=== PATIENT | female | born 1990 | race Caucasian/White ===

== ENCOUNTER 2024-08-28 19:13 | Observation (INO) | payer SELFPAY ==
[2024-08-28] VITALS (18 sets, daily range): BP systolic 88–136; BP diastolic 43–117; PULSE 93–121; RESP 15–18; TEMP 36.2–36.7; O2SAT 97–100; BMI 28.6
[2024-08-28 19:41] LABS: Absolute Lymphocyte Count 1.99 X10^3/uL (0.83-4.51); Absolute Neutrophil Count 11.7 X10^3/uL (2.0-7.7); Basophil# 0.02 X10^3/uL; Basophil% 0.1 % (0-1); Eosinophil# 0.08 X10^3/uL; Eosinophils% 0.5 % (0-5); Hematocrit 26.3 % (37-47); Hemoglobin 8.8 g/dL (12.0-15.0); Lymphocyte # 1.99 X10^3/ul (0.83-4.51); Lymphocyte % 13.4 % (19-41); Mean Corp Hgb Conc 33.5 g/dL (32-36); Mean Corpuscular Hgb 27.8 pg (27.0-32.0); Mean Corpuscular Volume 83.2 fL (81-99); Mean Platelet Vol. 10.4 fl (6.2-12.0); Monocyte# 0.93 X10^3/uL; Monocyte% 6.3 % (0-10); NRBC Flagged by Analyzer 0 % (0-5); Neutrophil # 11.72 X10^3/uL (2.7-7.7); Platelet Count 204 K/mm3 (150-450); RBC Distribution Width CV 13.8 % (11.6-14.6); RBC Distribution Width SD 41.9 fl (35.1-43.9); Red Blood Count 3.16 M/mm3 (4.2-5.4); White Blood Count 14.8 K/mm3 (4.4-11.0)
--- NOTE | 2024-08-28 19:44 | EDS_ITS ---
HPI HPI - Female History of Present Illness Chief Complaint: Vag Bld, Preg Informant: patient and spouse/S.O. Pain Onset: Today Context: Gradual Onset Timing: Continuous Quality: Positive for Cramping Current Severity: Mild Maximum Severity: Mild Bleeding Issue: Positive for Vaginal bleeding and Passing clots Maximum Severity: Heavy Associated Symptoms Test: Positive Sexually: Positive for Active Control: No control P: 8 Ab: 0 Narrative Narrative: 34-year-old [facility] female G9, P8 Ab0. 3 months . Has had no care. Believes she had a miscarriage this morning with heavy vaginal bleeding. Was unsure if she saw tissue. She has had heavy bleeding most of the day. She is having some mild pelvic cramping. She believes her blood type is a negative. Currently she does not want RhoGAM. Prior similar symptoms: No Recent Illness/Hospitalization: No PFSH PFSH Medical History no medical history no medical history Home Medications ?Medication ?Instructions ?Recorded ?Last Taken ?Type NK 08/28/24 Unknown History Allergy/AdvReac Type Severity Reaction Status Date / Time No Known Allergies Allergy Verified 08/28/24 19:25 Social History Smoking Status: Never smoker ROS ROS ED ROS Narrative Denies recent illness. Pelvic cramping. Heavy vaginal bleeding with clots. Constitutional Constitutional ED: Denies chills or fever(s) Eyes Eyes: Denies blurry vision ENT ENT ED: Denies ear pain Cardiovascular Cardiovascular: Denies chest pain Respiratory/Chest Respiratory/Chest: Denies cough or dyspnea Gastrointestinal Gastrointestinal: Denies abdominal pain Genitourinary Genitourinary ED: Denies dysuria or hematuria Musculoskeletal Musculoskeletal: Denies arthralgias Integumentary Denies abscess or Abrasions Neurologic Neurologic: Denies headache(s) Psychiatric Psychiatric: Denies anxiety or depression Endocrine Endocrinology: Denies heat intolerance Hematologic/Lymphatic Hematologic/Lymphatic: Denies easy bleeding, easy bruising or lymphadenopathy Allergic/Immunologic Allergic/Immunologic ED: Reports mouth swelling EXAM Physical Exam Narrative Exam Narrative: 34-year-old [facility] female lying in bed. at bedside. Initial vital signs 136/117 repeat 88/65. She is currently receiving IV fluids. H EENT exam pupils round react to light. Mytrex members. Neck nontender. Lungs clear to auscultation bilaterally. Heart regular rhythm rate about 100 no murmur. Chest wall and ribs nontender. Abdomen soft nondistended. Suprapubic tenderness. Boggy enlarged uterus. Pelvic exam done female nurse and present in room. Heavy vaginal bleeding with clots. Every time I start getting out clots and blood there would be additional clots and blood. I do believe I see the placenta coming from the cervix. The cervix is open. No lesions. No discharge. Moving all 4 extremities. Nontender no edema. She is awake and alert. No focal motor deficits. Const Vital Signs: 08/28/24 19:14 08/28/24 19:16 08/28/24 19:39 Temperature 98.0 F Temperature Source Temporal Temporal Pulse Rate 93 100 Respiratory Rate 18 17 Blood Pressure 136/117 H 88/65 L Blood Pressure Mean 123 72 Blood Pressure Source Blood Pressure Position Blood Pressure Location Pulse Ox 99 100 Oxygen Delivery Method Room Air 08/28/24 20:02 08/28/24 20:35 Temperature 98.0 F 98.0 F Temperature Source Temporal Pulse Rate 94 104 H Respiratory Rate 15 17 Blood Pressure 101/62 95/58 L Blood Pressure Mean 75 70 Blood Pressure Source Monitor Blood Pressure Position Supine Blood Pressure Location Right Arm Pulse Ox 100 97 Oxygen Delivery Method Room Air Positive well nourished and well developed; Negative for cachectic, contractures or unkempt General Appearance ED: well developed; Negative for unkempt, cachectic, contractures, NAD or pallor Nutritional Appearance: Negative for cachectic HEENT Reports moist mucous membranes Negative for trauma or tenderness Eyes PERRL and EOMs intact bilaterally Neck no lymphadenopathy, supple and no JVD Chest Wall inspection of chest normal and palpation of chest normal Resp normal respiratory effort Cardio regular rhythm, S1 normal heart sound, no murmurs and no JVD GI normal to inspection, nondistended, normoactive bowel sounds, soft to palpation, non-tender, non-distended and no masses GI Narrative: Suprapubic tenderness. Palpation: tender Back/Spine no CVA tenderness General Back: Negative for CVA tenderness Cervical Spine: Negative for cervical spine tenderness Thoracic Spine / Upper Back: Negative for thoracic spinal tenderness Lumbar Spine / Lower Back: Negative for lumbar spinal tenderness Extremity normal to inspection and full ROM General Extremety ED: Negative for edema or tenderness General Extremity: Negative for edema Neuro oriented x3 and CN's II-XII intact bilaterally Sensorium / Orientation: alert, oriented to person, oriented to place and oriented to time; Negative for confused, lethargic or stuporous Motor Exam: strength 5/5 throughout Psych mental status grossly normal Appearance: Negative for unkempt Attitude: No agitated Speech: No other Mood & Affect: Negative for depressed, anxious or tearful Skin no rashes or lesions noted and no wounds General Skin Exam: Negative for jaundice or pallor Rashes: No rashes noted MDM MDM MDM Narrative Medical decision making narrative: 34-year-old female heavy vaginal bleeding with clots. Currently miscarriage but not completed. Pelvic exam shows significant bleeding with clots. Already spoken to OB should be taken to the OR. We are establishing 2 lines. She is receiving a liter normal saline. She will be typed and crossed for 2 units. Blood count shows acute anemia with a hemoglobin 8.8 but no other labs available for comparison. Patient is aware that she is going to the OR. I discussed with the patient RhoGAM she does not want at this time that will be further discussed between her and the INSULATION CUTTER on-call. History & Record Review Discussion w/independent historian: Patient and Family Additional record(s) reviewed:: No prior records Lab Data Attestation: I reviewed the patient's lab results. Lab results narrative: CBC shows a white count of 14.8. H&H of 8.8 and 26.3. Platelets 204. Additional labs are currently pending. Patient's quant was 29, 114. Fibrinogen was 348. Blood type was O-. Labs: Laboratory Results - last 24 hr 08/28/24 08/28/24 19:25 20:00 WBC 14.8 H RBC 3.16 L Hgb 8.8 L Hct 26.3 L MCV 83.2 MCH 27.8 MCHC 33.5 RDW Std Deviation 41.9 RDW Coeff of Win 13.8 Plt Count 204 MPV 10.4 Immature Gran % (Auto) 0.700 Neut % (Auto) 79.0 H Lymph % (Auto) 13.4 L [place] % (Auto) 6.3 Eos % (Auto) 0.5 Baso % (Auto) 0.1 Absolute Neuts (auto) 11.7 H Absolute Lymphs (auto) 1.99 Nucleated RBC % 0 Fibrinogen 348 HCG, Quant 18665 H Blood Type O NEGATIVE Antibody Screen NEGATIVE Crossmatch See Detail Discharge Plan Dx/Rx/DC Orders Clinical Impression: Incomplete miscarriage, Episode of heavy vaginal bleeding, Acute anemia, Need for rhogam due to Rh negative mother Disposition Disposition: Acute Care Hospital [facility] Discharge Date/Time: 08/28/24 20:41
[2024-08-28] MEDS: 0.9% Normal Saline (1000mL) 1,000 ML 999 ML IV ×2 (19:51→20:30)
--- NOTE | 2024-08-28 20:15 | POC_PTH ---
PATIENT: JH TOMPKINS LOC: MS2 U#:[id number] AGE/SX: 34/F ROOM: [facility] RE08/29/[address]: Dr. Laura Castañeda, MDDOB: 1990 BED: 1 DIS: 08/29/2024 SPEC #: [id number] RECD: 08/29/24 09:10 STATUS: TALISHA MICHELLERosa #: [id number] SARBJIT: 08/28/24 20:[address]: Laura Castañeda DEPT: SURGICAL PATHOLOGY RECD BY: Elana Merrill ENTERED: 08/29/24 11:05 SP TYPE: PROD CONC OTHR DR: Dr. Taz Roberson DO Tissues: Product of conception, NOS Procedures: Surgery Specimen Level IV HEADER OPERATION: Dilation and curettage, suction PRE-OP DIAGNOSIS: Incomplete miscarriage, episode of heavy vaginal bleeding, acute anemia TISSUE SUBMITTED: Products of conception MICROSCOPIC DIAGNOSIS Products of conception, dilation and curettage: Decidua and immature placental tissue (products of conception), clinically incomplete . TERRIE: 08/30/2024 MICROSCOPIC DESCRIPTION Slides are reviewed. GROSS DESCRIPTION Received in fixative is one container labeled with the patient's name and designated Products of conception. The specimen consists of multiple irregular fragments of hemorrhagic soft tissue mixed with blood clot and placental tissue that in aggregate measure 10 x 10 x 3 cm. tissue is not identified. Website Admin tissue is submitted in two cassettes. 08/29/2024 TC:5 CPT:84670
--- NOTE | 2024-08-28 20:35 | HP.PCM.OB_ITS ---
History and Physical Date of Admission: 08/28/24 This is a 9 para 8 female at approximately 12 weeks gestation with an LMP of May 10, 2025 came into the ER complaining of heavy vaginal bleeding since approximately 6 AM today. Patient reports she passed intact fetus at approximately 630 this morning. She states that she has been having heavy bleeding and minor cramping since that time. Patient reports she does feel dizzy on occasion when standing. Patient reports she does feel sweaty at times as well. Patient reports she has had 8 vaginal deliveries without any complication. Patient reports she has had no complications with this up until today. Patient reports she has not had any ultrasounds for this p regnancy. Patient denies any medical history. Patient denies any previous surgeries. PMH: Denies PSX: denies All: NKDA Exam: female appears to be diaphoretic, pale. Alert and oriented Abd: soft, non tender Bedside, ultrasound: large amount of POC noted Pelvic exam- done by ER attending - large amt of clots with POC at OS Assessment & Plan Assessment/Plan (1) Incomplete miscarriage: (2) Episode of heavy vaginal bleeding: (3) Acute anemia: PLAN: Plan @ approximately 12 weeks gestation with incomplete , heavy vaginal bleeding 1) discussed surgical procedure with patient- suction D&C- risks and benefits reviewed. pt agreeable to proceed. pt consents for blood products of indicated 2) Fibrinogen added 3) OR team was notified 4) doxycycline 200mg PO 5) T&C x2 units
--- NOTE | 2024-08-28 20:36 | ED.RN ---
This RN called report to surgery.
[2024-08-28 21:03] LABS: Fibrinogen 348 mg/dl (203-444)
[2024-08-28 21:05] LABS: hCG Titer Quant., Serum 29114 mIU/mL (<9 non-preg)
--- NOTE | 2024-08-28 21:18 | PCM.OPRPT ---
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 Anesthesia was given. patient was placed in yellow fin stirrups and prepped and draped in normal sterile fashion. bladder was drained with straight catheter with approximately 25cc of clear yellow urine expelled. Weighted speculum placed in posterior fornix of vaginal, single tooth tenaculum was used to gently grasped anterior lip of cervix. . large softball sized clots were noted being actively coming from cervix. Cervix was already dilated. 12 portuguese suction catheter used. suction curettage performed until no tissue was expelled and cavity was deemed empty. Bedside ultrasound confirmed uterus had no retained POC. The tissue was then sent to pathology for examination. No complications. At this time procedure was deemed complete and successful. Tenaculum removed, speculum removed. Good hemostasis appreciated. Vaginal sweep was negative. Instrument and lap count correct x 2. I anticipate normal postoperative course. Surgical Findings: Large amount of retained POC. Due to Low Hg and patient being symptomatic will give one unit of PRBC, recheck CBC one hour after infusion. Complications Complications: No Admit VTE Documentation VTE Present on Admission: Yes VTE Mechan Device Prophylaxis: SCD's VTE Pharm Prophylaxis ordered?: No Reason prophylaxis not ordered: Treatment Not Indicated
--- NOTE | 2024-08-28 21:29 | DCINST_ITS ---
Discharge Instructions Diet Discharge Diet: No restrictions DC O2, CPAP, BIPAP needs Home O2 Discharge instructions: No Dressing / Incision May resume sexual activity in: 2 weeks Dressing / Incision Call your doctor if you observe: Fever of 101 or Higher, Inability to urinate, Using more than 1 pad per hour and Uncontrolled pain Follow Up Care Please Follow Up With: Laura Castañeda MD When: 1-2 weeks post OP if you need an appointment please call [phone] Test Results: Test results from this visit will be discussed in further detail at your follow- up appointment, if applicable. Discharge Plan Admission Attending Provider: Susan Addison Primary Care Provider: Taz Roberson Instructions Print Language: Estonian Discharge Orders/Prescriptions Prescriptions: No Action NK Referrals / Follow Up: Taz Roberson DO [Primary Care Provider] - Disposition Disposition (needs filled in before D/C Order can be placed): Home, Self Care
--- NOTE | 2024-08-28 22:00 | PRE.ANES_ITS ---
ASA Classification* ASA Classification ASA Classification: 3 and E Assessment & Plan Anesthesia* Anesthesia Assessment Anesthesia Assessment: Discussed sedation and/or anesthesia options, risks, benefits, and alternatives with patient/parents/legal guardian/POA. Questions invited. The patient/parents/legal guardian/POA seems to understand and agrees to proceed with anesthesia plan. Reviewed the physical assessment, medical history, allergy history and patient home medications list prior to surgery/procedure/anesthetic and documented any changes. Performed airway and anesthesia risk assessments. Procedural Plan Add'l anesthesia plan details: patient verbally consented for blood products, will plan to give 1u pRBC Anesthesia Type Anesthesia Type: General History Source History Obtained from:: Patient and Chart Anesthesia Focused Assessment* Temperature: 97.8 F Pulse Rate: 120 Blood Pressure: 109/48 Respiratory Rate: 16 Pulse Ox: 100 Oxygen Delivery Method: Room Air Airway Assessment Mouth opens: >3 cm Mallampati Score: II Teeth Condition: Dentures, Full, Lower and Upper Neck Range of motion (ROM): Full ROM Focused Labs Anesthesia Preop lab: CBC WBC 14.8 K/mm3 (4.4-11.0) H 08/28/24 19: 5 RBC 3.16 M/mm3 (4.2-5.4) L 08/28/24 19:08/28/24 Hgb 8.8 g/dL (12.0-15.0) L 08/28/24 19:08/28/24 Hct 26.3 % (37-47) L 08/28/24 19:08/28/24 Plt Count 204 K/mm3 (150-450) 08/28/24 19:08/28/24 CHEMISTRY Potassium Pending 08/28/24 19:08/28/24 Sodium Pending 08/28/24 19:08/28/24 BUN Pending 08/28/24 19:08/28/24 Creatinine Pending 08/28/24 19:08/28/24 Glucose Pending 08/28/24 19:08/28/24 COAG HCG, Quant [id number] mIU/mL (<9 non-preg) H 08/28/24 19: Pre-Assessment Diagnosis/Proposed Procedure Planned Operative Procedure(s): D&C Anesthesia History 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 When Was Last Pacemaker Check QUESTION #4 FULL TEXT: You/Your Family Experience fever (hyperthermia) with Anesthesia Last Oral Intake Last Oral intake: Last Oral Intake NPO since 17:00 08/28/24 20:02 Meds taken in AM with sips of No 08/28/24 20:02 water? 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 turbine powerplant mechanic Female HX of Motion Sickness HX of N/V After Surgery Non-Smoker Duration of Surgery greater than 60 minutes Number of Risk Factors PONV Score Height & Weight Height & Weight: Anesthesia: Height & Weight Height 5 ft 3 in 08/28/24 20:02 Weight: 73.4 kg 08/28/24 20:02 Body Mass Index (BMI) 28.6 08/28/24 20:02 Respiratory Assessment Respiratory Assessment - gas turbine powerplant mechanic: Respiratory Tract Infection Hx - gas turbine powerplant mechanic Hx Respiratory Tract Infection No 08/28/24 20:02 STOP Sleep Apnea STOP Sleep Apnea - gas turbine powerplant mechanic: STOP Sleep Apnea - gas turbine powerplant mechanic Hx Hypertension No 08/28/24 20:02 Hx Sleep Apnea No 08/28/24 20:02 CPAP BIPAP Do you snore loudly (louder No 08/28/24 20:02 than talking or can be heard Do you often feel tired/ No 08/28/24 20:02 fatigued/ sleepy during daytime? Has anyone observed you stop No 08/28/24 20:02 breathing during sleep? STOP Results Negative 08/28/24 20:02 QUESTION #5 FULL TEXT : Do you snore loudly (louder than talking or can be heard through closed doors)? 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 Specify any problems Hx of Preganancy in last 3 Months Nurse Filling Out Transfusion & Questions: Date: Time: Patient unable to answer at this time (ie. confused, unrespo /Reproduction History /Reproductive History - gas turbine powerplant mechanic: /Reproductive Hx- gas turbine powerplant mechanic Hx Now Yes: miscarriaging 08/28/24 20:02 Gestational Age (in weeks): EDC: Hx 9 08/28/24 19:23 Hx Para Hx Section SAB No 08/28/24 20:02 PFSH Medical History no medical history no medical history (patient reports no significant PMHx) Home Medications ?Medication ?Instructions ?Recorded ?Last Taken ?Type NK 08/28/24 Unknown History Allergy/AdvReac Type Severity Reaction Status Date / Time No Known Allergies Allergy Verified 08/28/24 19:25 other (patient reports no anesthetic issues in the family that she knows of) no surgical history Social History Smoking Status: Never smoker Review of Systems (Anesthesia) ROS Narrative System reviewed and no additional complaints, except as documented. Physical Exam Narrative patient AxO x3 appears pale and unwell tachycardic CTAB 2 18g PIVs
[2024-08-28] MEDS: Doxycycline 100 MG CAPSULE 200 MG PO (22:02)
--- NOTE | 2024-08-28 22:03 | PCM.POST.ANE ---
Anesthesia: Postop Eval I Current Vital Signs Temperature: 97.8 F Pulse Rate: 109 Blood Pressure: 109/50 Respiratory Rate: 16 Pulse Ox: 100 Oxygen Delivery Method: Room Air Assessment Airway patent: Yes Spontaneous unlabored respirations: Yes Mental status: Awake nausea: No Vomiting: No Anesthesia Complication: No Fluid Hydration Crystalloid volume administer (ml): 1,000 Total IV fluid infused: 1,000 Progress Note Anesthesia document: Postop Eval 1 completed: Yes
--- NOTE | 2024-08-28 22:09 | PCM.POSTANE2 ---
Anesthesia Postop Eval I Sum Postop Eval Completion status Anesthesia document: Postop Eval 1 completed: Yes Anesthesia Postop Eval I Summary Anesthesia Postop Eval I Summary: Anesthesia Postop Eval I: Assessment Summary Airway patent Yes 08/28/24 22:04 Spontaneous unlabored Yes 08/28/24 22:04 respirations Mental status Awake 08/28/24 22:04 nausea No 08/28/24 22:04 Vomiting No 08/28/24 22:04 Anesthesia Postop Eval I: Fluid Summary Crystalloid volume administer 1,000 08/28/24 22:04 (ml) Colloids volume administered ( ml) Blood Product volume administered (ml) Total IV fluid infused 1,000 08/28/24 22:04 Anesthesia Postop Eval I: Summary Notes Anesthesia Complication No 08/28/24 22:04 Anesthesia Complication Comment: Post-operative progress note Anesthesia: Postop Eval II Evaluation Mental status: Awake and Calm Pain Level: 3 nausea: No Vomiting: No Progress Note Post-operative progress note: patient receiving 1u pRBC now. none were given in the OR as we did not get it in time. Patient is AxO x3, tachycardia and hypotension are slowly improving. Patient in no pain and denying PONV Complications Anesthesia Complication: No
[2024-08-28] MEDS: Rho(D) Immune Globulin 300 MCG (1500 Unit) Syringe IV (22:33)
[2024-08-28 22:36] LABS: Anion Gap 12 (5-15); BUN 12 mg/dL (4-19); BUN/Creat Ratio 16.9 RATIO (10-20); Calcium 8.4 mg/dL (7.6-11.0); Carbon Dioxide 22.6 mmol/L (22.0-29.0); Chloride 100 mmol/L (96-108); Creatinine, Serum 0.7 mg/dL (0.6-1.0); EST Glomerular Filtration Rate 117 (>60); Estimated Creatinine Clearance 109.72 ml/min; Glucose 197 mg/dL (70-99); Potassium 3.2 mmol/L (3.3-5.1); Sodium Level 135 mmol/L (133-145)
--- NOTE | 2024-08-28 23:17 | SUR.PHASEI ---
Rho (D) Immune Globulin Rhophylc 1 DOS given IM Left Deltoid. See MAR for administration. Patient name, birthdate, MR Number, Order, consent, unit number, blood type, expiration date, fenwal bracelet are all verified prior to administration. Unable to document against TAR. Co signers; Alexa Avina RN. Patient tolerated well. Given within 30 minutes of receiving dose from Blood Bank.
--- NOTE | 2024-08-28 23:50 | SUR.PHASEI ---
timed cbc sent to lab
[2024-08-29] VITALS (7 sets, daily range): BP systolic 88–109; BP diastolic 46–76; PULSE 87–106; RESP 14–16; TEMP 36.6–37; O2SAT 99–100; BMI 29.5
[2024-08-29 00:15] LABS: Hematocrit 20.6 % (37-47); Mean Corpuscular Hgb 28.7 pg (27.0-32.0); Mean Corpuscular Volume 84.4 fL (81-99); Mean Platelet Vol. 10.1 fl (6.2-12.0); Platelet Count 164 K/mm3 (150-450); RBC Distribution Width CV 13.8 % (11.6-14.6); RBC Distribution Width SD 42.4 fl (35.1-43.9); Red Blood Count 2.44 M/mm3 (4.2-5.4); White Blood Count 14.1 K/mm3 (4.4-11.0)
--- NOTE | 2024-08-29 00:48 | SUR.PHASEI ---
PATIENT DID NOT TOLERATE SITTING AT THE SIDE OF THE BED, BECAME LIGHT HEADED AND DIZZY WITH TUNNELLED VISION. DR. KATE NOTIFIED AND CLEARED PATIENT FOR OBSERVATION. ORDER TO TRANSFUSE 2ND UNIT PRBC AND REPEAT CBC AT 0600. PATIENT VSS, SEE CHART. WILL TRANSFER TO [facility]. AND BELONGINGS AT BEDSIDE.
[2024-08-29] MEDS: 0.9% Normal Saline (1000mL) 1,000 ML 15 ML IV (02:01)
[2024-08-29 07:02] LABS: Absolute Lymphocyte Count 1.57 X10^3/uL (0.83-4.51); Absolute Neutrophil Count 8.2 X10^3/uL (2.0-7.7); Basophil# 0.01 X10^3/uL; Basophil% 0.1 % (0-1); Hematocrit 23.3 % (37-47); Hemoglobin 8.1 g/dL (12.0-15.0); Lymphocyte # 1.57 X10^3/ul (0.83-4.51); Lymphocyte % 15.2 % (19-41); Mean Corp Hgb Conc 34.8 g/dL (32-36); Mean Corpuscular Hgb 29.2 pg (27.0-32.0); Mean Corpuscular Volume 84.1 fL (81-99); Mean Platelet Vol. 10.2 fl (6.2-12.0); Monocyte# 0.44 X10^3/uL; Monocyte% 4.3 % (0-10); NRBC Flagged by Analyzer 0 % (0-5); Neutrophil # 8.21 X10^3/uL (2.7-7.7); Neutrophil % 79.7 % (47-70); Platelet Count 172 K/mm3 (150-450); RBC Distribution Width SD 42.4 fl (35.1-43.9); Red Blood Count 2.77 M/mm3 (4.2-5.4); White Blood Count 10.3 K/mm3 (4.4-11.0)
--- NOTE | 2024-08-29 07:45 | PCM.PROGNOTE ---
Subjective Subjective pt seen at bedside, reports feeling well- denies dizziness, cp, sob. pt reports bleeding is minimal. Objective Data Objective Data Vital Signs: Vital Signs Temp Pulse Resp BP Pulse Ox O2 Del Method 98.4 F 100 14 98/76 100 Room Air 08/29/24 04:00 08/29/24 04:00 08/29/24 04:00 08/29/24 04:00 08/29/24 04:00 08/29/24 04:00 Oxygen Delivery Method Room Air Weight: 73.4 kg Body Mass Index (BMI) 29.5 Intake & Output: Intake and Output for Last 24 Hours 08/27/24 08/28/24 08/29/24 23:59 23:59 23:59 Intake Total 2282 / 2282 0 / 0 Output Total 0 / 0 Balance 2257 / 2257 0 / 0 Lab / Micro Data 08/29/24 06:31 08/28/24 19:25 Labs: Laboratory Results - last 24 hr 08/28/24 19:25: WBC 14.8 H, RBC 3.16 L, Hgb 8.8 L, Hct 26.3 L, MCV 83.2, MCH 27.8, MCHC 33.5, RDW Std Deviation 41.9, RDW Coeff of Win 13.8, Plt Count 204, MPV 10.4, Immature Gran % (Auto) 0.700, Neut % (Auto) 79.0 H, Lymph % (Auto) 13.4 L, [place] % (Auto) 6.3, Eos % (Auto) 0.5, Baso % (Auto) 0.1, Absolute Neuts (auto) 11.7 H, Absolute Lymphs (auto) 1.99, Nucleated RBC % 0, Fibrinogen 348, Sodium 135, Potassium 3.2 L, Chloride Direct 100, Carbon Dioxide 22.6, Anion Gap 12, BUN 12, Creatinine 0.7, Estim Creat Clear Calc 109.72, Est GFR (MDRD) Non-Af 117, BUN/Creatinine Ratio 16.9, Glucose 197 H, Calcium 8.4, HCG, Quant [id number] H 08/28/24 20:00: Blood Type O NEGATIVE, Antibody Screen NEGATIVE, Crossmatch See Detail 08/28/24 23:45: WBC 14.1 H, RBC 2.44 L, Hgb 7.0 L, Hct 20.6 L, MCV 84.4, MCH 28.7, MCHC 34.0, RDW Std Deviation 42.4, RDW Coeff of Win 13.8, Plt Count 164, MPV 10.1 08/29/24 06:31: WBC 10.3, RBC 2.77 L, Hgb 8.1 L, Hct 23.3 L, MCV 84.1, MCH 29.2, MCHC 34.8, RDW Std Deviation 42.4, RDW Coeff of Win 14.0, Plt Count 172, MPV 10.2, Immature Gran % (Auto) 0.700, Neut % (Auto) 79.7 H, Lymph % (Auto) 15.2 L, [place] % (Auto) 4.3, Eos % (Auto) 0.0, Baso % (Auto) 0.1, Absolute Neuts (auto) 8.2 H, Absolute Lymphs (auto) 1.57, Nucleated RBC % 0 Physical Exam Narrative gen: female in NAD Const alert and oriented x3 Assessment & Plan Assessment/Plan (1) Acute anemia: (2) Episode of heavy vaginal bleeding: (3) Incomplete miscarriage: (4) Need for rhogam due to Rh negative mother: PLAN: Plan POD#1 s/p suction D&C for incomplete , acute blood loss anemia 1) s/p 2 units PRBC- pt aysmptomatic this morning, kept overnight for a 2nd unit of blood and monitoring 2) stable for dc home 3) recieved Rhogam- 15w+ based on LMP 4) pt given dc instructions and follow up instructions- will call for appt if desired otherwise i told them we will contact them with pathology results once available
== END 2024-08-29 09:10 | disposition home or self-care (01) ==
LOC: ED 19:53 → SDC 20:11 → AC 20:11 → MS2 08-29 01:30 → SDC 08-29 09:14 → MS2 08-29 09:14
PROVIDERS: Admitting Provider Obstetrics & Gynecology; Emergency Provider Emergency Medicine; PCP Family Medicine; Visit Provider Obstetrics & Gynecology
PROC: (CPT 59812; principal; 2024-08-28 20:00)
DX: O03.4 Incomplete spontaneous abortion without complication (principal); O99.012 Anemia complicating pregnancy, second trimester; D62 Acute posthemorrhagic anemia; O26.892 Other specified pregnancy related conditions, second trimester
CPT/HCPCS: 59812; 36415; 36430; 80048; 84702; 85025; 85027; 85384; 86850; 86900; 86901; 88305; 90384; 99221; 99285; P9016; A4216; G0378; J2405; J2790

== ENCOUNTER 2025-05-23 03:25 | Outpatient (CLI) | payer OTHER, SELFPAY ==
[2025-05-23 03:32] VITALS: BMI 33.7
--- OUTSIDE RECORDS SUMMARY | 2025-05-23 03:32 | XMS RPT_ITS | CCD ---
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 Name Role Phone Laura Castañeda Attending Unavail able Laura Castañeda Admitting Unavail able Taz Roberson Primary Care Unavailable Susan Addison Referring Unavailabl e Problems Problem Classification Problem Date Documented Da te Episodic/Chronic Spontaneous (1 source) Incomplete spontaneous without complication; Translations: [Incomplete spontaneous without complication] Onset: 09-12-2024 Episodic Results Test Name Value Interpretation Reference Range Facil ity CBC W/Diff, Automatedon 08-04 Absolute Lymph 1.57 X10 3/uL Normal 0.83-4.51 [facility] Comment on above: Performed By: #### L 100.0100 #### [facility] Laboratory [address] [place], [address] Absolute Neut 8.2 X10 3/uL High 2.0-7.7 [facility] Comment on above: Performed By: #### L 100.0100 #### [facility] Laboratory [address] [place], [address] Basophils/100 WBC (Bld) 0.1 % Normal 0-1 [facility] Comment on above: Performed By: #### L 100.0100 #### [facility] Laboratory [address] [place], [address] Eosinophils/100 WBC (Bld) 0.0 % Normal 0-5 [facility] Comment on above: Performed By: #### L 100.0100 #### [facility] Laboratory [address] [place], [address] Erythrocyte distribution width (RBC) [Ratio] 14.0 % Normal 11.6-14.6 [facility] Comment on above: Performed By: #### L 100.0100 #### [facility] Laboratory [address] [place], [address] Hematocrit (Bld) [Volume fraction] 23.3 % Low 37-47 [facility] Comment on above: Performed By: #### L 100.0100 #### [facility] Laboratory [address] [place], [address] Hemoglobin (Bld) [Mass/Vol] 8.1 g/dL Low 12.0-15.0 [facility] Comment on above: Performed By: #### L 100.0100 #### [facility] Laboratory [address] [place], [address] IG% 0.700 Normal 0.0-0.9 [facility] Comment on above: Result Comment: IG% - Immature Granulocytes (promyelocytes, myelocytes and metamyelocytes) > 1% indicates that a LEFT SHIFT is Present. Performed By: #### L 100.0100 #### [facility] Laboratory [address] [place], [address] Lymphocytes/100 WBC (Bld) 15.2 % Low 19-41 [facility] Comment on above: Performed By: #### L 100.0100 #### [facility] Laboratory [address] [place], [address] MCH (RBC) [Entitic mass] 29.2 pg Normal 27.0-32.0 [facility] Comment on above: Performed By: #### L 100.0100 #### [facility] Laboratory [address] [place], [address] MCHC (RBC) [Mass/Vol] 34.8 g/dL Normal 32-36 [facility] Comment on above: Performed By: #### L 100.0100 #### [facility] Laboratory [address] [place], [address] MCV (RBC) [Entitic vol] 84.1 fL Normal 81-99 [facility] Comment on above: Performed By: #### L 100.0100 #### [facility] Laboratory [address] [place], [address] Monocytes/100 WBC (Bld) 4.3 % Normal 0-10 [facility] Comment on above: Performed By: #### L 100.0100 #### [facility] Laboratory [address] [place], [address] Neutrophils/100 WBC (Bld) 79.7 % High 47-70 [facility] Comment on above: Performed By: #### L 100.0100 #### [facility] Laboratory [address] [place], [address] Nucleated RBC (Bld) [#/Vol] 0 10*3/uL Normal 0-5 [facility] Comment on above: Performed By: #### L 100.0100 #### [facility] Laboratory [address] [place], [address] Platelet mean volume (Bld) [Entitic vol] 10.2 fL Normal 6.2-12.0 [facility] Comment on above: Performed By: #### L 100.0100 #### [facility] Laboratory [address] [place], [address] Platelets (Bld) [#/Vol] 172 10*3/uL Normal 150-450 [facility] Comment on above: Performed By: #### L 100.0100 #### [facility] Laboratory [address] [place], [address] RBC (Bld) [#/Vol] 2.77 10*6/uL Low 4.2-5.4 [facility] Comment on above: Performed By: #### L 100.0100 #### [facility] Laboratory [address] [place], [address] RDW SD 42.4 fl Normal 35.1-43.9 [facility] Comment on above: Performed By: #### L 100.0100 #### [facility] Laboratory [address] [place], [address] WBC (Bld) [#/Vol] 10.3 10*3/uL Normal 4.4-11.0 [facility] Comment on above: Performed By: #### L 100.0100 #### [facility] Laboratory [address] [place], [address] CBC-Complete Blood Cnt No Di ffon 08-29-2024 Erythrocyte distribution width (RBC) [Ratio] 13.8 % Normal 11.6-14.6 [facility] Comment on above: Order Comment: Comme nts: one hour after PRBC infused Performed By: #### L 100.0500 #### [facility] Laboratory [address] [place], [address] Hematocrit (Bld) [Volume fraction] 20.6 % Low 37-47 [facility] Comment on above: Order Comment: Comme nts: one hour after PRBC infused Performed By: #### L 100.0500 #### [facility] Laboratory [address] [place], [address] Hemoglobin (Bld) [Mass/Vol] 7.0 g/dL Low 12.0-15.0 [facility] Comment on above: Order Comment: Comme nts: one hour after PRBC infused Performed By: #### L 100.0500 #### [facility] Laboratory [address] [place], [address] MCH (RBC) [Entitic mass] 28.7 pg Normal 27.0-32.0 [facility] Comment on above: Order Comment: Comme nts: one hour after PRBC infused Performed By: #### L 100.0500 #### [facility] Laboratory [address] [place], [address] MCHC (RBC) [Mass/Vol] 34.0 g/dL Normal 32-36 [facility] Comment on above: Order Comment: Comme nts: one hour after PRBC infused Performed By: #### L 100.0500 #### [facility] Laboratory [address] [place], [address] MCV (RBC) [Entitic vol] 84.4 fL Normal 81-99 [facility] Comment on above: Order Comment: Comme nts: one hour after PRBC infused Performed By: #### L 100.0500 #### [facility] Laboratory [address] [place], [address] Platelet mean volume (Bld) [Entitic vol] 10.1 fL Normal 6.2-12.0 [facility] Comment on above: Order Comment: Comme nts: one hour after PRBC infused Performed By: #### L 100.0500 #### [facility] Laboratory [address] [place], [address] Platelets (Bld) [#/Vol] 164 10*3/uL Normal 150-450 [facility] Comment on above: Order Comment: Comme nts: one hour after PRBC infused Performed By: #### L 100.0500 #### [facility] Laboratory [address] [place], [address] RBC (Bld) [#/Vol] 2.44 10*6/uL Low 4.2-5.4 [facility] Comment on above: Order Comment: Comme nts: one hour after PRBC infused Performed By: #### L 100.0500 #### [facility] Laboratory [address] [place], [address] RDW SD 42.4 fl Normal 35.1-43.9 [facility] Comment on above: Order Comment: Comme nts: one hour after PRBC infused Performed By: #### L 100.0500 #### [facility] Laboratory [address] [place], [address] WBC (Bld) [#/Vol] 14.1 10*3/uL High 4.4-11.0 [facility] Comment on above: Order Comment: Comme nts: one hour after PRBC infused Performed By: #### L 100.0500 #### [facility] Laboratory [address] [place], [address] BRCon 08-28-2024 RC Normal [facility] Comment on above: Result Comment: [id number] ON RC TRANSFUSED 08/28/242114 [id number] ON RC TRANSFUSED 08/29/24 0130 Performed By: #### L 300.4700, BR #### [facility] Laboratory [address] [place], [address] BRho(D) IGon 08-28-2024 Rho(D) IG Normal [facility] Comment on above: Result Comment: [id number] Rho(D) IG PRSMD TRFSD 08/28/248 Performed By: #### B Rho(D) IG #### [facility] Laboratory [address] [place], [address] Basic Metabolic Profile (BMP )on 08-28-2024 Anion gap [Moles/Vol] 12 mmol/L Normal 5-15 [facility] Comment on above: Performed By: #### L 500.2500 #### [facility] Laboratory [address] [place], [address] BUN/CRE 16.9 RATIO Normal 10-20 [facility] Comment on above: Performed By: #### L 500.2500 #### [facility] Laboratory [address] [place], [address] Calcium [Mass/Vol] 8.4 mg/dL Normal 7.6-11.0 [facility] Comment on above: Performed By: #### L 500.2500 #### [facility] Laboratory [address] [place], [address] Chloride [Moles/Vol] 100 mmol/L Normal 96-108 [facility] Comment on above: Performed By: #### L 500.2500 #### [facility] Laboratory [address] [place], [address] CO2 [Moles/Vol] 22.6 mmol/L Normal 22.0-29.0 [facility] Comment on above: Performed By: #### L 500.2500 #### [facility] Laboratory [address] [place], [address] Creatinine [Mass/Vol] 0.7 mg/dL Normal 0.6-1.0 [facility] Comment on above: Performed By: #### L 500.2500 #### [facility] Laboratory [address] [place], [address] ECRCL 109.72 ml/min Normal [facility] Comment on above: Performed By: #### L 500.2500 #### [facility] Laboratory [address] [place], [address] GFR/1.73 sq M.predicted among non-blacks MDRD (S/P/Bld) [Vol rate/Area] 117 mL/min/{1.73_m2} Normal >60 [facility] Comment on above: Result Comment: mL/m in/1.73m2 CKD-EPI Creatinine Equation (2020) Performed By: #### L 500.2500 #### [facility] Laboratory [address] [place], [address] Glucose [Mass/Vol] 197 mg/dL High 70-99 [facility] Comment on above: Performed By: #### L 500.2500 #### [facility] Laboratory [address] [place], [address] Potassium [Moles/Vol] 3.2 mmol/L Low 3.3-5.1 [facility] Comment on above: Performed By: #### L 500.2500 #### [facility] Laboratory [address] [place], [address] Sodium [Moles/Vol] 135 mmol/L Normal 133-145 [facility] Comment on above: Performed By: #### L 500.2500 #### [facility] Laboratory [address] [place], [address] Urea nitrogen [Mass/Vol] 12 mg/dL Normal 4-19 [facility] Comment on above: Performed By: #### L 500.2500 #### [facility] Laboratory [address] [place], [address] CBC W/Diff, Automatedon 08-04 Absolute Lymph 1.99 X10 3/uL Normal 0.83-4.51 [facility] Comment on above: Performed By: #### L 700.8000, L100.0100 #### [facility] Laboratory [address] [place], [address] Absolute Neut 11.7 X10 3/uL High 2.0-7.7 [facility] Comment on above: Performed By: #### L 700.8000, L100.0100 #### [facility] Laboratory [address] [place], [address] Basophils/100 WBC (Bld) 0.1 % Normal 0-1 [facility] Comment on above: Performed By: #### L 700.8000, L100.0100 #### [facility] Laboratory [address] [place], [address] Eosinophils/100 WBC (Bld) 0.5 % Normal 0-5 [facility] Comment on above: Performed By: #### L 700.8000, L100.0100 #### [facility] Laboratory [address] [place], [address] Erythrocyte distribution width (RBC) [Ratio] 13.8 % Normal 11.6-14.6 [facility] Comment on above: Performed By: #### L 700.8000, L100.0100 #### [facility] Laboratory [address] [place], [address] Hematocrit (Bld) [Volume fraction] 26.3 % Low 37-47 [facility] Comment on above: Performed By: #### L 700.8000, L100.0100 #### [facility] Laboratory [address] [place], [address] Hemoglobin (Bld) [Mass/Vol] 8.8 g/dL Low 12.0-15.0 [facility] Comment on above: Performed By: #### L 700.8000, L100.0100 #### [facility] Laboratory [address] [place], [address] IG% 0.700 Normal 0.0-0.9 [facility] Comment on above: Result Comment: IG% - Immature Granulocytes (promyelocytes, myelocytes and metamyelocytes) > 1% indicates that a LEFT SHIFT is Present. Performed By: #### L 700.8000, L100.0100 #### [facility] Laboratory [address] [place], [address] Lymphocytes/100 WBC (Bld) 13.4 % Low 19-41 [facility] Comment on above: Performed By: #### L 700.8000, L100.0100 #### [facility] Laboratory [address] [place], [address] MCH (RBC) [Entitic mass] 27.8 pg Normal 27.0-32.0 [facility] Comment on above: Performed By: #### L 700.8000, L100.0100 #### [facility] Laboratory [address] [place], [address] MCHC (RBC) [Mass/Vol] 33.5 g/dL Normal 32-36 [facility] Comment on above: Performed By: #### L 700.8000, L100.0100 #### [facility] Laboratory [address] [place], [address] MCV (RBC) [Entitic vol] 83.2 fL Normal 81-99 [facility] Comment on above: Performed By: #### L 700.8000, L100.0100 #### [facility] Laboratory [address] [place], [address] Monocytes/100 WBC (Bld) 6.3 % Normal 0-10 [facility] Comment on above: Performed By: #### L 700.8000, L100.0100 #### [facility] Laboratory [address] [place], [address] Neutrophils/100 WBC (Bld) 79.0 % High 47-70 [facility] Comment on above: Performed By: #### L 700.8000, L100.0100 #### [facility] Laboratory [address] [place], [address] Nucleated RBC (Bld) [#/Vol] 0 10*3/uL Normal 0-5 [facility] Comment on above: Performed By: #### L 700.8000, L100.0100 #### [facility] Laboratory [address] [place], [address] Platelet mean volume (Bld) [Entitic vol] 10.4 fL Normal 6.2-12.0 [facility] Comment on above: Performed By: #### L 700.8000, L100.0100 #### [facility] Laboratory [address] [place], [address] Platelets (Bld) [#/Vol] 204 10*3/uL Normal 150-450 [facility] Comment on above: Performed By: #### L 700.8000, L100.0100 #### [facility] Laboratory [address] [place], [address] RBC (Bld) [#/Vol] 3.16 10*6/uL Low 4.2-5.4 [facility] Comment on above: Performed By: #### L 700.8000, L100.0100 #### [facility] Laboratory [address] [place], [address] RDW SD 41.9 fl Normal 35.1-43.9 [facility] Comment on above: Performed By: #### L 700.8000, L100.0100 #### [facility] Laboratory [address] [place], [address] WBC (Bld) [#/Vol] 14.8 10*3/uL High 4.4-11.0 [facility] Comment on above: Performed By: #### L 700.8000, L100.0100 #### [facility] Laboratory [address] [place], [address] Discharge Instructionon 08-04 Discharge Instruction [facility] Medical Records Department [address] [place] [address] Instructions for Home/Discharge Instructions 08/28/242128 MR#: [id number] Acct: [id number] Name: JH TOMPKINS Rep #: [id number] : 1990 34 From: Laura Castañeda MD PCP: Dr. Taz Roberson DO Status:REG SDC Discharge Instructions Diet Discharge Diet: No restrictions DC O2, CPAP, BIPAP needs Home O2 Discharge instructions: No Dressing / Incision May resume sexual activity in: 2 weeks Dressing / Incision Call your doctor if you observe: Fever of 101 or Higher, Inability to urinate, Using more than 1 pad per hour and Uncontrolled pain Follow Up Care Please Follow Up With: Beverly Castañeda MD When: 1-2 weeks post OP if you need an appointment please call [phone] Test Results: Test results from this visit will be discussed in further detail at your follow-up appointment, if applicable. Discharge Plan Admission Attending Provider: Susan Addison Primary Care Provider: Taz Roberson Instructions Print Language: Kenyan Discharge Orders/Prescriptions Prescriptions: No Action NK Referrals / Follow Up: Taz Roberson DO [Primary Care Provider] - Disposition Disposition (needs filled in before D/C Order can be placed): Home, Self Care 08/28/242129 Laura Castañeda MD CC: Dr. Taz Roberson DO Signed ADDENDUM by Dr Laura Castañeda MD on 08/28/24 at 2131 please take Over the counter ferrous sulfate 325mg Daily for anemia. 08/28/242130 Beverly Castañeda MD cc: Dr. Taz Roberson DO * Signed Normal [facility] Emergency Department Summary on 08-28-2024 Emergency Department Summary [facility] Medical Records Department [address] [place] [address] Emergency Department Summary 08/28/24 MR#: [id number] Acct: [id number] Name: JH TOMPKINS Rep #: [id number] : 1990 34 From: Yoel Gunderson MD PCP: Dr. Taz Roberson DO Status:REG [facility] [place] Location: [place] [address]- HPI HPI - Female History of Present Illness Chief Complaint: Vag Bld, Preg Informant: patient and spouse/S.O. Pain Onset: Today Context: Gradual Onset Timing: Continuous Quality: Positive for Cramping Current Severity: Mild Maximum Severity: Mild Bleeding Issue: Positive for Vaginal bleeding and Passing clots Maximum Severity: Heavy Associated Symptoms Test: Positive Sexually: Positive for Active Control: No control P: 8 Ab: 0 Narrative Narrative: 34-year-old [facility] female G9, P8 Ab0. 3 months . Has had no care. Believes she had a miscarriage this morning with heavy vaginal bleeding. Was unsure if she saw tissue. She has had heavy bleeding most of the day. She is having some mild pelvic cramping. She believes her blood type is a negative. Currently she does not want RhoGAM. Prior similar symptoms: No Recent Illness/Hospitalizati on: No PFSH PFSH Medical History no medical history no medical history Home Medications ???Medication ???Instructions ???Recorded ???Last Taken ???Type NK 08/28/24 Unknown History Allergy/AdvReac Type Severity Reaction Status Date / Time No Known Allergies Allergy Verified 08/28/24 19:25 Social History Smoking Status: Never smoker ROS ROS ED ROS Narrative Denies recent illness. Pelvic cramping. Heavy vaginal bleeding with clots. Constitutional Constitutional ED: Denies chills or fever(s) Eyes Eyes: Denies blurry vision ENT ENT ED: Denies ear pain Cardiovascular Cardiovascular: Denies chest pain Respiratory/Chest Respiratory/Chest: Denies cough or dyspnea Gastrointestinal Gastrointestinal: Denies abdominal pain Genitourinary Genitourinary ED: Denies dysuria or hematuria Musculoskeletal Musculoskeletal: Denies arthralgias Integumentary Denies abscess or Abrasions Neurologic Neurologic: Denies headache(s) Psychiatric Psychiatric: Denies anxiety or depression Endocrine Endocrinology: Denies heat intolerance Hematologic/Lymphatic Hematologic/Lymphatic : Denies easy bleeding, easy bruising or lymphadenopathy Allergic/Immunologic Allergic/Immunologic ED: Reports mouth swelling EXAM Physical Exam Narrative Exam Narrative: 34-year-old [facility] female lying in bed. at bedside. Initial vital signs 136/117 repeat 88/65. She is currently receiving IV fluids. H EENT exam pupils round react to light. [employer] members. Neck nontender. Lungs clear to auscultation bilaterally. Heart regular rhythm rate about 100 no murmur. Chest wall and ribs nontender. Abdomen soft nondistended. Suprapubic tenderness. Boggy enlarged uterus. Pelvic exam done female nurse and present in room. Heavy vaginal bleeding with clots. Every time I start getting out clots and blood there would be additional clots and blood. I do believe I see the placenta coming from the cervix. The cervix is open. No lesions. No discharge. Moving all 4 extremities. Nontender no edema. She is awake and alert. No focal motor deficits. Const Vital Signs: 08/28/24 19:14 08/28/24 19:16 08/28/24 19:39 Temperature 98.0 F Temperature Source Temporal Temporal Pulse Rate 93 100 Respiratory Rate 18 17 Blood Pressure 136/117 H 88/65 L Blood Pressure Mean 123 72 Blood Pressure Source Blood Pressure Position Blood Pressure Location Pulse Ox 99 100 Oxygen Delivery Method Room Air 08/28/24 20:02 08/28/24 20:35 Temperature 98.0 F 98.0 F Temperature Source Temporal Pulse Rate 94 104 H Respiratory Rate 15 17 Blood Pressure 101/62 95/58 L Blood Pressure Mean 75 70 Blood Pressure Source Monitor Blood Pressure Position Supine Blood Pressure Location Right Arm Pulse Ox 100 97 Oxygen Delivery Method Room Air Positive well nourished and well developed; Negative for cachectic, contractures or unkempt General Appearance ED: well developed; Negative for unkempt, cachectic, contractures, NAD or pallor Nutritional Appearance: Negative for cachectic HEENT Reports moist mucous membranes Negative for trauma or tenderness Eyes PERRL and EOMs intact bilaterally Neck no lymphadenopathy, supple and no JVD Chest Wall inspection of chest normal and palpation of chest normal Resp normal respiratory effort Cardio regular rhythm, S1 normal heart sound, no murmurs and no JVD GI normal to inspection, nondistended, normoactive bowel sounds, soft to palpation, non (more content not included)... Normal [facility] Fibrinogenon 08-28-2024 FIBRINOGEN 348 mg/dl Normal 203-444 [facility] Comment on above: Performed By: #### L 300.5799, BRC #### [facility] Laboratory [address] [place], [place], [address] H AND P Exam - OB/GYNon 08-04 H&P Exam - RN ONCOLOGY RESEARCH [facility] Medical Records Department [address] [place] [address] H P Exam - RN ONCOLOGY RESEARCH 08/28/242034 MR#: [id number] Acct: [id number] Name: JH TOMPKINS Clemente Rep #: [id number] : 1990 34 From: Laura Castañeda MD PCP: Dr. Taz Roberson, DO Status:REG [facility] [place] Location: [place] [address] History and Physical Date of Admission: 08/28/24 This is a 9 para 8 female at approximately 12 weeks gestation with an LMP of May 10, 2025 came into the ER complaining of heavy vaginal bleeding since approximately 6 AM today. Patient reports she passed intact fetus at approximately 630 this morning. She states that she has been having heavy bleeding and minor cramping since that time. Patient reports she does feel dizzy on occasion when standing. Patient reports she does feel sweaty at times as well. Patient reports she has had 8 vaginal deliveries without any complication. Patient reports she has had no complications with this up until today. Patient reports she has not had any ultrasounds for this . Patient denies any medical history. Patient denies any previous surgeries. PMH: Denies PSX: denies All: NKDA Exam: female appears to be diaphoretic, pale. Alert and oriented Abd: soft, non tender Bedside, ultrasound: large amount of POC noted Pelvic exam- done by ER attending - large amt of clots with POC at OS Assessment Plan Assessment/Plan (1) Incomplete miscarriage: (2) Episode of heavy vaginal bleeding: (3) Acute anemia: PLAN: Plan @ approximately 12 weeks gestation with incomplete , heavy vaginal bleeding 1) discussed surgical procedure with patient- suction D C- risks and benefits reviewed. pt agreeable to proceed. pt consents for blood products of indicated 2) Fibrinogen added 3) OR team was notified 4) doxycycline 200mg PO 5) T C x2 units 08/28/242041 Cosigner Signature (if applicable): CC: Dr Laura Castañeda MD; Dr. Taz Roberson DO Signed ADDENDUM by Dr Laura Castañeda MD on 08/28/24 at 2043 Addendum based on LMP- that puts her at 04u3xcpg gestation. 08/28/242043 Cosigner Signature (if applicable): cc: Dr Laura Castañeda MD; Dr. Taz Roberson DO * Signed ADDENDUM by Dr Laura Castañeda MD on 08/28/24 at 2046 Addendum Rh negative- will recommend rhogam- pt uncertain would like to discuss with first. 08/28/242046 Cosigner Signature (if applicable): cc: Dr Laura Castañeda MD; Dr. Taz Roberson DO * Signed Normal [facility] MR/POSTOP.ANEon 08-28-2024 MR/POSTOP.[facility] Medical Records Department [address] [place] [address] Anesthesia Postop Eval I 08/28/242202 MR#: [id number] Acct: [id number] Name: JH TOMPKINS [place] Rep #: [id number] : 1990 34 From: Oli Guzmán MD PCP: Dr. Taz Roberson, DO Status:REG SDC Y Race: C Location: [place] [address] Anesthesia: Postop Eval I Current Vital Signs Temperature: 97.8 F Pulse Rate: 109 Blood Pressure: 109/50 Respiratory Rate: 16 Pulse Ox: 100 Oxygen Delivery Method: Room Air Assessment Airway patent: Yes Spontaneous unlabored respirations: Yes Mental status: Awake nausea: No Vomiting: No Anesthesia Complication: No Fluid Hydration Crystalloid volume administer (ml): 1,000 Total IV fluid infused: 1,000 Progress Note Anesthesia document: Postop Eval 1 completed: Yes 08/28/242203 Date Oli Guzmán MD Cosigner Signature: Date CC: Signed Normal [facility] MR/[id number] 08-28-2024 [facility] [place] Medical Records Department [address] [place] [id number] Anesthesia Postop Eval II 08/28/242208 MR#: [id number] Acct: [id number] Name: JH TOMPKINS Rep #: [id number] : 1990 34 From: Oli Guzmán MD PCP: Dr. Taz Roberson, DO Status:REG SDC Y Race: C Location: [place] [address] Anesthesia Postop Eval I Sum Postop Eval Completion status Anesthesia document: Postop Eval 1 completed: Yes Anesthesia Postop Eval I Summary Anesthesia Postop Eval I Summary: Anesthesia Postop Eval I: Assessment Summary Airway patent Yes 08/28/24 22:04 Spontaneous unlabored Yes 08/28/24 22:04 respirations Mental status Awake 08/28/24 22:04 nausea No 08/28/24 22:04 Vomiting No 08/28/24 22:04 Anesthesia Postop Eval I: Fluid Summary Crystalloid volume administer 1,000 08/28/24 22:04 (ml) Colloids volume administered ( ml) Blood Product volume administered (ml) Total IV fluid infused 1,000 08/28/24 22:04 Anesthesia Postop Eval I: Summary Notes Anesthesia Complication No 08/28/24 22:04 Anesthesia Complication Comment: Post-operative progress note Anesthesia: Postop Eval II Evaluation Mental status: Awake and Calm Pain Level: 3 nausea: No Vomiting: No Progress Note Post-operative progress note: patient receiving 1u pRBC now. none were given in the OR as we did not get it in time. Patient is AxO x3, tachycardia and hypotension are slowly improving. Patient in no pain and denying PONV Complications Anesthesia Complication: No 08/28/242209 Date Oli Guzmán MD Cosigner Signature: Date CC: Signed Normal [facility] Operative Reporton 5 Operative Report [facility] Medical Records Department [address] [place] [address] Operative Report 08/28/242117 MR#: [id number] Acct: [id number] Name: JH TOMPKINS Rep #: [id number] : 1990 34 From: Laura Castañeda MD PCP: Dr. Taz Roberson, DO Status:[facility] Location: [place] [address] Operative Report (Standard) Operative Information Date of Procedure: 08/28/24 Pre-Operative Diagnosis: Incomplete , Heavy vaginal bleeding, acute blood loss anemia Post-Operative Diagnosis: Same Surgery/Procedure Performed: Suction D C executive administrative assistant: No Type of Anesthesia: General RN Documented Start/Stop Times: Operation Date: 08/28/24 20:15 Case Time Anesthesia Start 08/28/24 20:45 Into Room 08/28/24 20:45 Procedure Start 08/28/24 21:07 Procedure Start Time: 21:07 Procedure Stop Time: 21:16 Select all DRAINS/GRAFTS/IMPLANT S that apply: None Estimated Blood Loss: 50 Fluids Replaced: 1000 Specimen collected: Yes Description of specimen(s) removed: products of conception Description of surgery: After informed consent was obtained patient was taken to OR and placed in supine position. Anesthesia was given. patient was placed in yellow fin stirrups and prepped and draped in normal sterile fashion. bladder was drained with straight catheter with approximately 25cc of clear yellow urine expelled. Weighted speculum placed in posterior fornix of vaginal, single tooth tenaculum was used to gently grasped anterior lip of cervix. . large softball sized clots were noted being actively coming from cervix. Cervix was already dilated. 12 andorran suction catheter used. suction curettage performed until no tissue was expelled and cavity was deemed empty. Bedside ultrasound confirmed uterus had no retained POC. The tissue was then sent to pathology for examination. No complications. At this time procedure was deemed complete and successful. Tenaculum removed, speculum removed. Good hemostasis appreciated. Vaginal sweep was negative. Instrument and lap count correct x 2. I anticipate normal postoperative course. Surgical Findings: Large amount of retained POC. Due to Low Hg and patient being symptomatic will give one unit of PRBC, recheck CBC one hour after infusion. Complications Complications: No Admit VTE Documentation VTE Present on Admission: Yes VTE Mechan Device Prophylaxis: SCD's VTE Pharm Prophylaxis ordered?: No Reason prophylaxis not ordered: Treatment Not Indicated 08/28/242122 Cosigner Signature (if applicable): CC: Dr Laura Castañeda MD; Dr. Susan Addison DO; Dr. Taz Roberson DO Signed Normal [facility] Surgery Specimen Level Facundo 08-28-2024 Surgery Specimen Level IV -------- Patient Age/Sex Location Account Attending Physician -------- JH TOMPKINS 34/F MS2 [id number] Dr Laura Castañeda, -------- Specimen: [id number] Received: 08/29/24 Status: TALISHA Lisa Num: [id number] Spec Type: PROD CONC Subm Dr: Dr Laura Castañeda MD HEADER OPERATION: Dilation and curettage, suction PRE-OP DIAGNOSIS: Incomplete miscarriage, episode of heavy vaginal bleeding, acute anemia TISSUE SUBMITTED: Products of conception -------- MICROSCOPIC DIAGNOSIS Products of conception, dilation and curettage: Decidua and immature placental tissue (products of conception), clinically incomplete . SJ: 08/30/2024 MICROSCOPIC DESCRIPTION Slides are reviewed. GROSS DESCRIPTION Received in fixative is one container labeled with the patient's name and designated Products of conception. The specimen consists of multiple irregular fragments of hemorrhagic soft tissue mixed with blood clot and placental tissue that in aggregate measure 10 x 10 x 3 cm. tissue is not identified. Gas Maker tissue is submitted in two cassettes. TERRIE. 08/29/2024 TC:5 CPT:37181 -------- Patient Age/Sex Location Account Attending Physician -------- JH TOMPKINS 34/F MS2 [id number] Dr Laura Monk-John, -------- Signed (signature on file) Dr. Vazquez Frank MD 08/30/24 1130 -------- Normal [facility] Comment on above: Performed By: #### P SUIV #### [facility] Laboratory [address] [place], [place], [address] Type AND Screenon 08-28-2024 Ab SCREEN GEL Negative Normal [facility] Comment on above: Order Comment: HVAG Performed By: #### B TS #### [facility] Laboratory [address] [place], [place], [address] hCG Titer Quant., Serumon HCG QUANT. 39010 mIU/mL High <9 non-preg [facility] Comment on above: Result Comment: Gest ational Age 0.2-1 Week: 5-50 mIU/mL 1-2 Weeks: 50-500 mIU/mL 2-3 Weeks: 100-5000 mIU/mL 3-4 Weeks: 500-10,000 mIU/mL 4-5 Weeks:1000-50,000 mIU/mL 5-6 Weeks: 10,000-100,000 mIU/mL 6-8 Weeks: 15,000-200,000 mIU/mL 2-3 Months:10,000-100,000 mIU/mL Performed By: #### L 700.8000, L100.0100 #### [facility] Laboratory [address] [place], [place], [address] Encounters Encounter Date Encounter Type Care Provider Facility Start: 08-29-2024 End: 08-29-2024 ambulatory Laura Castañeda Facility:[facility] Payers Date Payer Category Payer Self-pay Unknown [id number] Summary Purpose Family History No Family History Records Found Advance Directives No Advanced Directives Records Found Additional Source Comments INFORMATION SOURCE (unrecogn ized section and content) DATE CREATED AUTHOR 09/15/2024 [facility] FOR RECORDS PERTAINING TO PATIENTS WHO ARE OR HAVE BEEN ENROLLED IN A CHEMICAL DEPENDENCY/SUBSTANCEABUSE PROGRAM, SOME INFORMATION MAY BE OMITTED. This clinical summary was aggregated from multiple sources. Caution should be exercised in using it in the provision of clinical care. This summary normalizes information from multiple sources, and as a consequence, information in this document may materially change the coding, format and clinical context of patient data. In addition, data may be omitted in some cases. CLINICAL DECISIONS SHOULD BE BASED ON THE PRIMARY CLINICAL RECORDS. [facility] [employer] [facility] provides no warranty or guarantee of the accuracy or completeness of information in this document.
[2025-05-23 03:38] VITALS: BP 106/61; PULSE 82; RESP 14; TEMP 36.9
[2025-05-23 03:39] VITALS: PULSE 85; O2SAT 99
--- NOTE | 2025-05-23 03:55 | US_ITS ---
PROCEDURE: OB LIMITED WITH BIOMETRICS 05/23/2025 REASON FOR EXAM: VAGINAL BLEEDING TECHNIQUE: Procedure Code: [id number] Modality: US Procedure: OB LIMITED WITH BIOMETRICS COMPARISON: None. FINDINGS Number: 1 Position: Cephalic Placental Position: Anterior Placental Abnormalities: None. DIMENSIONS: Biparietal Diameter: 7.9 cm/3 1 weeks 1 day Head Circumference: 28.4 cm/31 weeks 1 day Abdominal Circumference: 26.4 cm/30 weeks 4 days Femur Length: 5.7 cm/29 weeks 5 days ESTIMATED WEIGHT: 1.6 kg ESTIMATED WEIGHT PERCENTILE (24+ weeks): 40% ESTIMATED GESTATIONAL AGE: Baseline: 30 weeks 3 days By Ultrasound: 30 weeks 5 days ESTIMATED DATE OF DELIVERY: Baseline: 29 July 2025 By Ultrasound: 27 July 2025 BIOPHYSICAL ASSESSMENT: Amniotic Fluid Index: 5 point (8-24 cm normal range) Cardiac Motion: 145 (average) Trunk and Limb Motion: Present. MATERNAL ANATOMY: Adnexa: Ovaries obscured by overlying gravid uterus Cervical Length (if measured): Not measured. ANATOMY: Limited anatomic survey is negative. US/OB Limited With Biometrics IMPRESSION: Single live 3rd trimester . Reading Location: [id number]
[2025-05-23 04:30] LABS: Hematocrit 33.8 % (37-47); Hemoglobin 11.6 g/dL (12.0-15.0); Immature Granulocytes Count 0.030 X10^3/uL (0.0-0.0); Mean Corp Hgb Conc 34.3 g/dL (32-36); Mean Corpuscular Volume 83.3 fL (81-99); Mean Platelet Vol. 10.2 fl (6.2-12.0); NRBC Flagged by Analyzer 0 % (0-5); Platelet Count 198 K/mm3 (150-450); RBC Distribution Width CV 12.6 % (11.6-14.6); RBC Distribution Width SD 38.6 fl (35.1-43.9); Red Blood Count 4.06 M/mm3 (4.2-5.4); White Blood Count 8.0 K/mm3 (4.4-11.0)
[2025-05-23 05:14] LABS: Partial Thromboplast Time 33.2 Seconds (24.1-36.2)
[2025-05-23 05:15] LABS: Fibrinogen 348 mg/dl (203-444)
[2025-05-23 07:20] LABS: Prothrombin Time (Protime)PT. 13.3 SECONDS (11.7-14.9)
[2025-05-23] MEDS: Rho(D) Immune Globulin 300 MCG (1500 Unit) Syringe IV (10:48)
--- NOTE | 2025-05-23 13:33 | OB.TRI.NOTE ---
HPI - General General Date of Admission: 05/23/25 Date of Service: 05/23/25 Chief Complaint: spotting HPI Narrative JH TOMPKINS, is a 35 F who presents at 30w3d with spotting at home. No bleeding once on L&D. No falls or trauma. No pain, ctx, lof. Good FM. 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 PFSH PFSH Medical History no medical history Home Medications ?Medication ?Instructions ?Recorded ?Last Taken ?Type vit no.95-ferrous 1 tab PO DAILY 05/23/25 05/22/25 History fumarate 28 mg-folic acid 800 mcg tablet () Allergy/AdvReac Type Severity Reaction Status Date / Time No Known Allergies Allergy Verified 05/23/25 03:54 Social History Smoking Status: Never smoker NST FHR Rate Baby A Baseline: 140 Variability:: Moderate Accelerations:: 15 x 15 Decelerations:: None NST Reactive:: Yes FHR Category:: Category I Uterine Activity:: no contractions Assessment & Plan (1) Need for rhogam due to Rh negative mother: (2) 30 weeks gestation of : (3) No care in current : (4) Spotting affecting : PLAN: Spotting at home. No falls, trauma or contractions. No bleeding on L&D. FHT reactive and reassuring. Formal US shows no placental abnormalities. Labs normal for . Rhogam given. D/c home with return precautions.
== END 2025-05-23 10:50 | disposition home or self-care (01) ==
LOC: WPOUT 03:30 → WP 03:30
PROVIDERS: Referring Provider Obstetrics & Gynecology; Visit Provider Obstetrics & Gynecology
DX: O26.853 Spotting complicating pregnancy, third trimester (principal); Z3A.30 30 weeks gestation of pregnancy
CPT/HCPCS: 96374; 59025; 59050; 76816; 85025; 85384; 85461; 85610; 85730; 86850; 86900; 86901; 90384; 96372; 99221; G0378; J2790; J2791